=== PATIENT | male | born 1955 | race Caucasian/White ===

== ENCOUNTER 2021-08-31 09:12 | Outpatient (REF) | payer MEDICARE, SELFPAY ==
[2021-08-31 09:33] LABS: Binax Now Covid-19 Ag Negative (Negative)
[2021-08-31 09:34] LABS: Binax Internal Control QC Valid
== END 2021-08-31 09:13 | disposition home or self-care (01) ==
LOC: HO.LAB 09:12
PROVIDERS: PCP Physician Assistant Medical; Visit Provider Internal Medicine
DX: Z13.89 Encounter for screening for other disorder (principal)